=== PATIENT | female | born 1980 | race African-American/Black ===

== ENCOUNTER 2018-07-26 03:54 | Emergency (ER) | payer OTHER ==
[~2018-07-26] VITALS: Ht 180.3 cm; Wt 136.1 kg
[~2018-07-26 03:54] MED LIST: ACETAMINOPHEN-1 EAC1 PO; ADDERALL 20 MG20 MG; BACTRIM DS TAB1 EACH PO; CIPROFLOXIN HC2.5 M1 OPHTHALMIC; CLEOCIN HCL300 MG PO; GLUCOPHAGE XR500 MG PO; GUAIFEN-CODEIN120 ML PO; NORCO 5-325 TA1 EACH PO; OSELB75 PO; ROBAXIN500 MG PO; TRAMADOL 50 MG50 MG; TRAMADOL 50 MG50 MG PO; WELLBUTRIN 75 M75 M1; ZOFRAN4 MG PO; ZOLOFT100 MG PO
[2018-07-26] MEDS ORDERED: PROZAC20 MG PO (04:06)
[2018-07-26] MEDS ORDERED: AMBIEN 5 MG TABL5 M1 PO (04:06)
[2018-07-26 04:36] LABS: URINE BLOOD 3+ (Negative); URINE CLARITY CLEAR; URINE COLOR DARK YELLOW; URINE GLUCOSE-RANDOM NEGATIVE (Negative); URINE KETONES NEGATIVE (Negative); URINE LEUKOCYTES-REFLEX NEGATIVE (Negative); URINE PROTEIN 1+ (Negative); URINE SPECIFIC GRAVITY >= 1.030 (1.005-1.030); URINE UROBILINOGEN 0.2 E.U./dl (0.2-1.0)
[2018-07-26 04:37] LABS: URINE BILIRUBIN 1+ (Negative); URINE NITRITE-REFLEX POSITIVE (Negative)
[2018-07-26 05:13] LABS: SQUAMOUS 0-3 Few /LPF (0-3)
[2018-07-26 05:14] LABS: BACTERIA-REFLEX 1-9 Few /HPF (None Seen); CASTS None Seen /LPF (None Seen); CRYSTALS None Seen /LPF (None Seen); MUCUS 4-6 Moderate strn/LPF (None Seen); URINE RBC >20 Many /HPF (0-2); URINE WBC-REFLEX 0-5 Rare /HPF (0-5)
[2018-07-26 05:26] LABS: ICTOTEST (BILI CONFIRMATORY) Negative (Negative)
[2018-07-26] MEDS ORDERED: AMOXICILLIN 50500 M1 PO (06:15)
[2018-07-26] MEDS ORDERED: ZOFRAN ODT4 MG PO (06:15)
[2018-07-26] MEDS ORDERED: HYDROCODON-ACE1 EAC8 PO (06:15)
[2018-07-26 06:29] VITALS: BP 122/72
== END 2018-07-26 06:30 | disposition home or self-care (01) ==
LOC: M.ERS 03:54
PROVIDERS: Emergency Medicine
DX: N20.1 Calculus of ureter (principal); F32.9 Major depressive disorder, single episode, unspecified; Z88.8 Allergy status to other drugs, medicaments and biological substances

== ENCOUNTER 2018-07-29 18:30 | Emergency (ER) | payer OTHER ==
[~2018-07-29] VITALS: Ht 180.3 cm; Wt 158.8 kg
[~2018-07-29 18:30] MED LIST changes: +AMBIEN 5 MG TABL5 M1 PO; +AMOXICILLIN 50500 M1 PO; +HYDROCODON-ACE1 EAC8 PO; +PROZAC20 MG PO; +ZOFRAN ODT4 MG PO
[2018-07-29 19:06] LABS: URINE BILIRUBIN NEGATIVE (Negative); URINE BLOOD 3+ (Negative); URINE CLARITY CLEAR; URINE COLOR YELLOW; URINE GLUCOSE-RANDOM NEGATIVE (Negative); URINE KETONES NEGATIVE (Negative); URINE LEUKOCYTES TRACE (Negative); URINE NITRITE NEGATIVE (Negative); URINE PROTEIN TRACE (Negative); URINE SPECIFIC GRAVITY >= 1.030 (1.005-1.030)
[2018-07-29 19:13] LABS: CASTS None Seen /LPF (None Seen); MUCUS 0-3 Light strn/LPF (None Seen); SQUAMOUS 4-10 Moderate /LPF (0-3); URINE RBC >20 Many /HPF (0-2); URINE WBC 6-15 Few /HPF (0-5)
[2018-07-29 19:14] LABS: CRYSTALS None Seen /LPF (None Seen)
[2018-07-29 19:23] LABS: ABSOLUTE BASOPHILS 0.1 thou/uL (0.0-0.2); ABSOLUTE EOSINOPHILS 0.2 thou/uL (0.0-0.7); ABSOLUTE LYMPHOCYTES 3.4 thou/uL (0.8-5.3); ABSOLUTE MONOCYTES 0.3 thou/uL (0.0-1.2); ABSOLUTE NEUTROPHILS 3.1 thou/uL (1.6-8.1); BASOPHILS 0.8 %; EOSINOPHILS 2.4 %; HEMATOCRIT 35.9 % (37.0-47.0); HEMOGLOBIN 11.7 gm/dL (12.0-15.0); LYMPHOCYTES 47.9 %; MCH 25.8 pg (26.0-34.0); MCHC 32.5 g/dL (28.0-37.0); MCV 79.2 fL (80.0-100.0); MONOCYTES 4.6 %; MPV 7.2 fl. (7.2-11.1); NUCLEATED RBCS 0 /100WBC; PLATELET COUNT* 375 thou/uL (150-400); POLYS 44.3 %; RBC 4.53 mil/uL (4.20-5.00); WBC 7.1 thou/uL (4.0-11.0)
[2018-07-29 19:31] LABS: CALCIUM 8.2 mg/dL (8.5-10.1); CREATININE 0.9 mg/dL (0.6-1.3); POTASSIUM 4.1 mmol/L (3.5-5.1)
[2018-07-29 19:35] LABS: ALBUMIN 3.1 g/dL (3.4-5.0); TOTAL BILIRUBIN 0.4 mg/dL (<0.1-1.0); TOTAL PROTEIN 7.7 g/dL (6.4-8.2)
[2018-07-29] MEDS ORDERED: FLOMAX0.4 MG PO (20:18)
[2018-07-29] MEDS ORDERED: CIPRO500 MG PO (20:18)
[2018-07-29] MEDS ORDERED: PERCOCET PO (20:18)
[2018-07-29] MEDS ORDERED: NABUMETONE 750750 M1 PO (20:18)
[2018-07-29] MEDS ORDERED: PHENERGAN 25 MG25 M1 PO (20:30)
[2018-07-29 22:14] VITALS: BP 117/67
== END 2018-07-29 22:15 | disposition home or self-care (01) ==
LOC: M.ERS 18:30
PROVIDERS: Nurse Practitioner Family
DX: N20.1 Calculus of ureter (principal); N39.0 Urinary tract infection, site not specified; Z88.8 Allergy status to other drugs, medicaments and biological substances

== ENCOUNTER 2019-10-13 18:56 | Emergency (ER) | payer OTHER ==
[~2019-10-13] VITALS: Ht 180.3 cm; Wt 140.6 kg
[~2019-10-13 18:56] MED LIST changes: +CIPRO500 MG PO; +FLOMAX0.4 MG PO; +NABUMETONE 750750 M1 PO; +PERCOCET PO; +PHENERGAN 25 MG25 M1 PO
[2019-10-13] MEDS ORDERED: ADIPEX-P37.5 MG PO (19:06)
[2019-10-13] MEDS ORDERED: ZANAFLEX4 M2 PO (19:06)
[2019-10-13 20:30] LABS: INFLUENZA A ANTIGEN Negative (Negative); INFLUENZA B ANTIGEN Negative (Negative)
[2019-10-13 21:14] LABS: ABSOLUTE BASOPHILS 0.1 thou/uL (0.0-0.2); ABSOLUTE EOSINOPHILS 0.2 thou/uL (0.0-0.7); ABSOLUTE LYMPHOCYTES 3.6 thou/uL (0.8-5.3); ABSOLUTE MONOCYTES 0.3 thou/uL (0.0-1.2); ABSOLUTE NEUTROPHILS 5.4 thou/uL (1.6-8.1); BASOPHILS 0.8 %; EOSINOPHILS 1.8 %; HEMATOCRIT 34.6 % (37.0-47.0); HEMOGLOBIN 11.5 gm/dL (12.0-15.0); LYMPHOCYTES 37.7 %; MCH 27.4 pg (26.0-34.0); MCHC 33.4 g/dL (28.0-37.0); MCV 82.2 fL (80.0-100.0); MONOCYTES 3.6 %; MPV 7.4 fl. (7.2-11.1); NUCLEATED RBCS 0 /100WBC; PLATELET COUNT* 361 thou/uL (150-400); POLYS 56.1 %; RBC 4.21 mil/uL (4.20-5.00); RDW-CV 15.6 % (10.5-14.5); WBC 9.6 thou/uL (4.0-11.0)
[2019-10-13 21:19] LABS: CALCIUM 8.5 mg/dL (8.5-10.1); CREATININE 0.8 mg/dL (0.6-1.3); POTASSIUM 3.7 mmol/L (3.5-5.1)
[2019-10-13] MEDS ORDERED: PHENERGAN 25 MG25 MG PO (21:23)
[2019-10-13] MEDS ORDERED: TYLENOL WITH CO1 TA1 PO (21:23)
[2019-10-13 21:24] LABS: ALBUMIN 3.2 g/dL (3.4-5.0); TOTAL BILIRUBIN 0.8 mg/dL (<0.1-1.0); TOTAL PROTEIN 7.6 g/dL (6.4-8.2)
[2019-10-13 21:52] VITALS: BP 130/79
== END 2019-10-13 21:54 | disposition home or self-care (01) ==
LOC: M.ERS 18:56
PROVIDERS: Personal Emergency Response Attendant
DX: B34.9 Viral infection, unspecified (principal); F32.9 Major depressive disorder, single episode, unspecified; Z98.51 Tubal ligation status; Z88.8 Allergy status to other drugs, medicaments and biological substances

== ENCOUNTER 2021-05-09 21:55 | Emergency (ER) | payer OTHER ==
[~2021-05-09] VITALS: Ht 180.3 cm; Wt 131.5 kg
[~2021-05-09 21:55] MED LIST changes: +ADIPEX-P37.5 MG PO; +PHENERGAN 25 MG25 MG PO; +TYLENOL WITH CO1 TA1 PO; +ZANAFLEX4 M2 PO
[2021-05-09 22:20] LABS: URINE BILIRUBIN NEGATIVE (Negative); URINE BLOOD NEGATIVE (Negative); URINE CLARITY CLEAR; URINE COLOR YELLOW; URINE GLUCOSE-RANDOM NEGATIVE (Negative); URINE KETONES NEGATIVE (Negative); URINE LEUKOCYTES-REFLEX NEGATIVE (Negative); URINE NITRITE-REFLEX NEGATIVE (Negative); URINE PROTEIN NEGATIVE (Negative); URINE SPECIFIC GRAVITY 1.025 (1.005-1.030); URINE UROBILINOGEN 0.2 E.U./dl (0.2-1.0)
[2021-05-09] MEDS ORDERED: ADDERALL 30 MG30 MG PO (22:24)
[2021-05-09] MEDS ORDERED: CLINDAGEL75 ML TOP (23:57)
[2021-05-10 00:06] VITALS: BP 144/78
== END 2021-05-10 00:06 | disposition home or self-care (01) ==
LOC: M.ERS 21:55
PROVIDERS: Personal Emergency Response Attendant
DX: N76.0 Acute vaginitis (principal); B96.89 Other specified bacterial agents as the cause of diseases classified elsewhere; Z88.8 Allergy status to other drugs, medicaments and biological substances; Z98.51 Tubal ligation status

== ENCOUNTER 2021-08-23 09:06 | Emergency (ER) | payer OTHER ==
[~2021-08-23] VITALS: Ht 180.3 cm; Wt 122.5 kg
[~2021-08-23 09:06] MED LIST changes: +ADDERALL 30 MG30 MG PO; +CLINDAGEL75 ML TOP
[2021-08-23 09:22] LABS: URINE CLARITY CLEAR; URINE COLOR YELLOW; URINE GLUCOSE-RANDOM NEGATIVE (Negative); URINE KETONES TRACE (Negative); URINE LEUKOCYTES-REFLEX NEGATIVE (Negative); URINE NITRITE-REFLEX NEGATIVE (Negative); URINE PROTEIN TRACE (Negative); URINE SPECIFIC GRAVITY >= 1.030 (1.005-1.030)
[2021-08-23 09:28] LABS: ICTOTEST (BILI CONFIRMATORY) Negative (Negative); URINE BILIRUBIN 1+ (Negative); URINE BLOOD 3+ (Negative)
[2021-08-23 09:30] LABS: BACTERIA-REFLEX 1-9 Few /HPF (None Seen); CASTS None Seen /LPF (None Seen); CRYSTALS None Seen /LPF (None Seen); MUCUS >6 Heavy strn/LPF (None Seen); SQUAMOUS 4-10 Moderate /LPF (0-3); URINE RBC >20 Many /HPF (0-2); URINE WBC-REFLEX 0-5 Rare /HPF (0-5)
[2021-08-23 10:20] LABS: ABSOLUTE LYMPHOCYTES 1.5 thou/uL (0.8-5.3); ABSOLUTE MONOCYTES 0.3 thou/uL (0.0-1.2); ABSOLUTE NEUTROPHILS 4.2 thou/uL (1.6-8.1); BASOPHILS 0.6 %; EOSINOPHILS 0.8 %; HEMATOCRIT 36.3 % (37.0-47.0); LYMPHOCYTES 25.1 %; MCH 27.1 pg (26.0-34.0); MCV 82.1 fL (80.0-100.0); MONOCYTES 5.4 %; NUCLEATED RBCS 0 /100WBC; PLATELET COUNT* 306 thou/uL (150-400); POLYS 68.1 %; RBC 4.42 mil/uL (4.20-5.00); RDW-CV 15.6 % (10.5-14.5); WBC 6.1 thou/uL (4.0-11.0)
[2021-08-23 10:32] LABS: CALCIUM 8.4 mg/dL (8.5-10.1); CREATININE 0.9 mg/dL (0.6-1.3); POTASSIUM 4.7 mmol/L (3.5-5.1)
[2021-08-23 10:37] LABS: TOTAL BILIRUBIN 0.4 mg/dL (<0.1-1.0); TOTAL PROTEIN 7.6 g/dL (6.4-8.2)
--- NOTE | 2021-08-23 11:18 | EKG ---
[place] [address] ELECTROCARDIOGRAM REPORT Name: JACKIE VERA Room: [facility]#: [id number] Admission: 08/23/21 Attend Phys: Discharge: Date of : 80 Date of Service: 08/23/21 0949 Report #: [id number] THIS REPORT FOR: //name// [facility] ED Test Date: 2021-08-23 Test Time: 09:49:08 Pat Name: JACKIE VERA Department: Room: Gender: F [employer]: : 1980 Requested By: Saad Michelle Order Number: [id number] MD: Royal Vidales Measurements Intervals [place] Rate: 49 P: 7 [place]: 152 QRS: 36 QRSD: 87 T: 23 QT: 452 QTc: 409 Interpretive Statements Sinus bradycardia Low voltage, precordial leads Baseline wander in lead(s) II,III,aVF Compared to ECG 08/13/2012 09:45:53 Low QRS voltage now present Sinus rhythm no longer present Electronically Signed On 08-23-2021 11:17:55 CDT by Royal Vidales [email or web address] <ELECTRONICALLY SIGNED> By: Royal Vidales MD, FACC 08/23/21 1117 0949 0949 Royal Vidales MD, FACC /EPI
[2021-08-23 11:50] VITALS: BP 104/58
== END 2021-08-23 11:50 | disposition home or self-care (01) ==
LOC: M.ERS 09:06
PROVIDERS: Family Medicine
DX: R10.31 Right lower quadrant pain (principal); R10.32 Left lower quadrant pain; F32.9 Major depressive disorder, single episode, unspecified; Z90.49 Acquired absence of other specified parts of digestive tract; Z98.51 Tubal ligation status; Z79.899 Other long term (current) drug therapy; Z87.891 Personal history of nicotine dependence; Z88.1 Allergy status to other antibiotic agents